=== PATIENT | male | born 1995 | race Asian ===

== ENCOUNTER 2017-08-25 16:11 | Emergency (ER) | payer OTHER ==
[2017-08-25] MEDS ORDERED: Cyclobenzaprine TAB* 10 MG PO ONE (16:57)
[2017-08-25] MEDS ORDERED: Ibuprofen TAB* 800 MG PO ONE (16:57)
--- NOTE | 2017-08-25 17:47 | RAD ---
HISTORY: Acute left-sided cervical pain with radiation into the left shoulder COMPARISONS: None TECHNIQUE: Multiple contiguous axial CT scans were obtained of the cervical spine without intravenous contrast, with coronal and sagittal multiplanar reformations. FINDINGS: BRAIN: The visualized brain is unremarkable CENTRAL CANAL: Evaluation of the central canal is limited on CT technique, however there is no obvious canalicular mass or epidural hemorrhage. ALIGNMENT: There is straightening of the normal cervical lordosis. VERTEBRAL BODIES: The odontoid process is intact. The atlantoaxial intervals are symmetric. The vertebral bodies are normal in attenuation, without fracture. JOINTS: There is no subluxation or dislocation MUSCULATURE: Normal INTERVERTEBRAL DISCS: The intervertebral disc spaces are relatively preserved in height. AXIAL IMAGES: At C5-C6, there is a broad-based left paracentral disc protrusion measuring 0.3 cm in depth. There is no osseous neural foraminal narrowing or central canal stenosis. SOFT TISSUES: The visualized soft tissues of the neck are unremarkable. The prevertebral fat stripe is preserved. OTHER: None. IMPRESSION: 1. STRAIGHTENING OF THE CERVICAL LORDOSIS. 2. THERE IS A SMALL LEFT-SIDED DISC PROTRUSION AT C5-C6. THERE IS NO OSSEOUS NEURAL FORAMINAL NARROWING OR CENTRAL CANAL STENOSIS. 3. NO ACUTE OSSEOUS INJURY TO THE CERVICAL SPINE.
--- NOTE | 2017-08-25 17:59 | ED ---
Neck Pain - HPI Summary HPI Summary: Patient here with left-sided neck pain status post cracking his own neck earlier today. He reports as soon as he did this, he heard a pop and had acute pain in the muscles along the left side of his neck and shoulder. Denies numbness, tingling, weakness, headache. Admits he's had issues on and off with his neck and follows with a chiropractor who provides temporary relief w/ adjustments however issue seemed to be returning. He also admits he is working out quite a bit with overhead exercises and body weight. Has not tried anything for pain prior to arrival. No known history of disc or neurological issues in this area. - History of Current Complaint Chief Complaint: EDNeckComplaint Stated Complaint: NECK & LT SHOULDER PAIN Time Seen by Provider: 08/25/17 16:55 Hx Obtained From: Patient Pain Intensity: 7 - Allergies/Home Medications Allergies/Adverse Reactions: Allergies Allergy/AdvReac Type Severity Reaction Status Date / Time No Known Allergies Allergy Verified 08/25/17 17:04 Home Medications: Home Medications Ibuprofen TAB* [Advil TAB*] 400 mg PO Q6H PRN 08/25/17 [History Confirmed ] PMH/Surg Hx/FS Hx/Imm Hx Previously Healthy: Yes Endocrine/Hematology History: Denies: Hx Anticoagulant Therapy, Hx Blood Disorders Musculoskeletal History: Reports: Other Musculoskeletal History - "neck issues" Sensory History: Reports: Hx Contacts or Glasses Opthamlomology History: Reports: Hx Contacts or Glasses Neurological History: Denies: Other Neuro Impairments/Disorders Infectious Disease History: No Infectious Disease History: Denies: Traveled Outside the [place] in Last 30 Days - Family History Known Family History: Positive: None - Social History Occupation: Student Lives: Dormitory/Roommates Alcohol Use: Occasionally - "not recently" Hx Substance Use: No Substance Use Type: Reports: None Hx Tobacco Use: No Smoking Status (MU): Never Smoked Tobacco Review of Systems Constitutional: Negative Negative: Fatigue Eyes: Negative Negative: Photophobia, Blurred Vision, Diplopia ENT: Negative Negative: Sore Throat Cardiovascular: Negative Negative: Chest Pain Respiratory: Negative Negative: Shortness Of Breath Gastrointestinal: Negative Negative: Vomiting, Nausea Positive: no symptoms reported Positive: Arthralgia, Myalgia, Decreased ROM Skin: Negative Neurological: Other - chhaya radiating from Lt side of neck into shoulder Negative: Headache, Weakness, Paresthesia, Numbness, Syncope, Slurred Speech Psychological: Normal - concerned but cooperative All Other Systems Reviewed And Are Negative: Yes Physical Exam Triage Information Reviewed: Yes Vital Signs On Initial Exam: Initial Vitals Temp Pulse Resp BP Pulse Ox 97.8 F 74 14 117/79 97 08/25/17 16:22 18 16:22 08/25/17 16:22 08/25/17 16:22 08/25/17 16:22 Vital Signs Reviewed: Yes Appearance: Positive: Well-Appearing, Well-Nourished, Pain Distress - mild at rest - appears uncomfortable w/ transition from lying to standing - guarding neck movements. Skin: Positive: Warm, Skin Color Reflects Adequate Perfusion - no erythema or ecchymosis over affected areas, Dry Head/Face: Positive: Normal Head/Face Inspection Eyes: Positive: Normal, EOMI, CHRISTA, Conjunctiva Clear ENT: Positive: Hearing grossly normal, Pharynx normal - mucosa moist Neck: Positive: Tenderness @ - B/L trapezius hypertonicity and tenderness w/ palpation Lt > Rt Respiratory/Lung Sounds: Positive: Clear to Auscultation, Breath Sounds Present Cardiovascular: Positive: Normal, Pulses are Symmetrical in both Upper and Lower Extremities - no UE edema Musculoskeletal: Positive: Strength/ROM Intact - UE's, Limited @ - cervical ROM limited d/t pain Neurological: Positive: Normal, Sensory/Motor Intact, Alert, Oriented to Person Place, Time, CN Intact II-III Psychiatric: Positive: Normal Diagnostics - Vital Signs Vital Signs Temp Pulse Resp BP Pulse Ox 08/25/17 16:22 97.8 F 74 14 117/79 97 - Laboratory Lab Statement: Any lab studies that have been ordered have been reviewed, and results considered in the medical decision making process. Neck Course/Dx - Course Course Of Treatment: Pt presents w/ Ltr side cervical pain s/p " cracking" his neck. Meds ordered and pending CT cervical spine. Signed out to HOLLEY Phipps in stable condition. - Diagnoses Provider Diagnoses: Cervical pain Discharge - Discharge Plan Condition: Stable Disposition: OTHER Discharge Disposition Comment: sign out Referrals: [facility] - [facility] [Primary Care Provider] -
--- NOTE | 2017-08-25 18:14 | PN ---
Progress Note - Progress Note Date of Service: 08/25/17 Note: patient signed out by Siobhan SCHUSTER pending CT CT shows IMPRESSION: 1. STRAIGHTENING OF THE CERVICAL LORDOSIS. 2. THERE IS A SMALL LEFT-SIDED DISC PROTRUSION AT C5-C6. THERE IS NO OSSEOUS NEURAL FORAMINAL NARROWING OR CENTRAL CANAL STENOSIS. 3. NO ACUTE OSSEOUS INJURY TO THE CERVICAL SPINE. Patient's pain is greatest were protrusion is. Will have follow up with Conner for continued care. Discussed that may benefit from PT. We will try a muscle relaxer for the next couple days. Told to use ice and heat movements tolerated. Told to use ibuprofen. Patient understands and agrees with plan. diagnosis: neck pain Disposition: home Condition: stable
[2017-08-25 18:22] VITALS: BP 125/71
== END 2017-08-25 18:23 | disposition home or self-care (01) ==
LOC: ED 16:11
DX: M50.222 Other cervical disc displacement at C5-C6 level (principal)
CPT/HCPCS: 72125; 99282; A9270-GY